=== PATIENT | female | born 1950 | race Caucasian/White ===

== ENCOUNTER 2024-08-30 16:15 | Emergency (ER) | payer MEDICARE, SELFPAY ==
[2024-08-30] VITALS (20 sets, daily range): BP systolic 96–130; BP diastolic 50–72; PULSE 79–87; TEMP 36.7; O2SAT 96–99; BMI 25.7
--- NOTE | 2024-08-30 16:09 | ECG_ITS ---
The [facility] Test Date: 2024-08-30 Pat Name: JAMES ALEX Department: Room: - Gender: Female [employer] Filler: : 1950 Requested By: Order Number: [id number] Reading MD: ARUAN CHARLTON Measurements Intervals [place] Rate: 82 P: 30 PA: 138 QRS: 53 QRSD: 94 T: 69 QT: 380 QTc: 419 Interpretive Statements 1100 Sinus rhythm 9110 normal ECG No previous ECG available for comparison Electronically Signed On 08-31-2024 6:52:31 EST by ARUNA CHARLTON
--- NOTE | 2024-08-30 16:09 | XR_ITS ---
The [address] [address] Patient Name: JAMES ALEX MRN: [id number] date: 1950 Sex: F Assigned Patient Location: ED.MAIN Current Patient Location: ED.MAIN Accession/Order Number: [id number] Exam Date: 08/30/2024 16:28 Report Date: 08/30/2024 17:09 At the request of: EVNTURA HONG Procedure: XR chest 1V Exam: Radiographs: XR chest 1V Reason for exam: abdominal pain Comparison: Chest x-ray dated 08/30/2015 XR/XR chest 1V IMPRESSION: Right PICC with tip in the upper SVC. Chest is otherwise unremarkable. Electronically authenticated by: KAREN GOMES Date: 08/30/2024 17:09
--- NOTE | 2024-08-30 16:14 | ED_ITS ---
HPI HPI - General Adult General Chief complaint: Abdominal Pain Stated complaint: FEEDING TUBE ISSUES Time Seen by Provider: 08/30/24 16:15 Source: patient and EMR Mode of arrival: ambulance Limitations: no limitations History of Present Illness HPI narrative: 74-year-old female presents to the ER for evaluation of increased drainage around recent J-tube placement 1 wwk ago with abdominal wound debridement with Dr. Mcclendon. [facility] Patient reports having a PEG tube for some time with a history of gastroparesis likely from her diabetes. Patient states she would chronically vomit. She requires 24-hour TPN for nutrition. 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 Patient waiting on a wound VAC. Patient under care at the [facility], receiving TPN. Patient does have some chronic baseline confusion and when asking questions knows her name, location and some of her recent events but defers a lot of the questions regarding her medical history to her at the bedside. She denies any fevers or chills. States she has some chronic abdominal pain and they have been giving her on all through her 14 Frt. J tube tube. states she is having more drainage and skin irritation as result at the site. Denies any nausea or vomiting but she is requesting IV pain medication on arrival. Onset (ago): week(s) Related Data Allergies Allergy/AdvReac Type Severity Reaction Status Date / Time bee venom protein (honey bee) Allergy Severe Anaphylaxis Verified 08/30/24 16:20 sulfamethoxazole (From Allergy Severe Hives Verified 08/30/24 16:20 Bactrim) tolterodine (From Detrol) Allergy Severe Anaphylaxis Verified 08/30/24 16:07 trimethoprim (From Bactrim) Allergy Severe Hives Verified 08/30/24 16:20 metoclopramide Allergy Unknown Unknown Verified 08/30/24 16:20 theophylline Allergy Unknown Unknown Verified 08/30/24 16:20 acetaminophen (From Percocet) AdvReac Mild Hallucinati Verified 08/30/24 16:07 ng codeine AdvReac Mild Hallucinati Verified 08/30/24 16:07 ng insulin detemir (From AdvReac Mild Rash Verified 08/30/24 16:07 Levemir U-100 Insulin) oxycodone (From Percocet) AdvReac Mild Hallucinati Verified 08/30/24 16:07 ng Opioid HPI Opioid Management Most Recent Opioid Data: No Data to Display Review of Systems ROS Constitutional Denies: fever or chills Eyes Denies: change in vision or blurry vision Ears, nose, mouth, and throat Denies: throat pain or neck pain Cardiovascular Denies: chest pain or palpitations Respiratory Denies: shortness of breath or cough Gastrointestinal Reports: abdominal pain; Denies: vomiting Genitourinary Denies: painful urination Musculoskeletal Denies: back pain or neck pain Integumentary/Breast Denies: rash Neurological Denies: headache Psychiatric Denies: anxiety Allergic/Immunologic Denies: hives [facility] Medical History (Updated 08/30/24 @ 18:46 by JEY Yeager) Myocardial infarct, old ?I25.2 - Old myocardial infarction (ICD-10) Hypertension ?I10 - Essential (primary) hypertension (ICD-10) Claustrophobia ?F40.240 - Claustrophobia (ICD-10) Hypokalemia ?E87.6 - Hypokalemia (ICD-10) Hypomagnesemia ?E83.42 - Hypomagnesemia (ICD-10) Hyperlipidemia ?E78.5 - Hyperlipidemia, unspecified (ICD-10) Malnourished ?E46 - Unspecified protein-calorie malnutrition (ICD-10) Type 2 diabetes mellitus ?E11.9 - Type 2 diabetes mellitus without complications (ICD-10) Compression fracture of T12 vertebra ?S22.080A - Wedge compression fracture of T11-T12 vertebra, initial encounter for closed fracture (ICD-10) Wedge compression fracture of T11 vertebra ?S22.080A - Wedge compression fracture of T11-T12 vertebra, initial encounter for closed fracture (ICD-10) Gastroparesis ?K31.84 - Gastroparesis (ICD-10) Surgical History (Updated 08/30/24 @ 18:42 by Mary Wilson RN) H/O heart artery stent ?Z95.5 - Presence of coronary angioplasty implant and graft (ICD-10) Social History Little interest or pleasure in doing things: not at all Feeling down, depressed, or hopeless: not at all Exam Narrative Exam Narrative: Nurses notes and vital signs reviewed and patient is not hypoxic. General: The patient appears well, lying supine with active tube feed. answers questions readily.. repots failing Feeding studies X3 in 2018. Skin: Warm, dry, no pallor noted. Slight erythema/dermatitis-like reaction around the J-tube site on the right lower abdomen copious amounts of serous drainage appearing yellow and transparent in color. No purulent drainage no streaking. Wound margins without hypergranulation to the left upper abdomen with significant area of debridement noted from recent surgery and ramona in the midline. Head: Normocephalic, atraumatic Neck: Supple, trachea mid-line, no tenderness, no lymphadenopathy Eye: Pupils are equal, round and reactive to light, EOMI Ears, Nose, Mouth, and Throat: TM are clear, normal light reflex, oral mucosa is moist, no posterior oropharynx erythema or hypertrophy, uvula is mid-line Cardiovascular: Regular Rate and Rhythm Respiratory: Patient is in no distress, no accessory muscle use, lungs are clear to auscultation, no wheezing, rales or rhonchi. Chest Wall: no tenderness Back: non-tender, no CVA tenderness Musculoskeletal: normal ROM, no tenderness, no swelling. Picc ling right arm without s/s of infection. GI: Bowel sounds present, tenderness noted in the right lower and left lower quadrant. No rebound or rigidity slight induration concerning for seroma, no drainge at midline ramona or suspscious drainge from large left upper abdomen debridement site. Neurological: A&O x person , place and time. Psychiatric: Cooperative Constitutional Vital Signs, click to edit/add: Last Vital Signs Temp 98.1 F 08/30/24 15:57 Pulse 79 08/30/24 18:30 Resp 12 08/30/24 18:30 BP 130/61 08/30/24 18:30 Pulse Ox 96 08/30/24 18:30 O2 Del Method Room Air 08/30/24 15:57 Course Vital Signs Vital signs: Vital Signs Temperature 98.1 F 08/30/24 15:57 Pulse Rate 86 08/30/24 15:57 Respiratory Rate 18 08/30/24 15:57 Blood Pressure 111/72 08/30/24 15:57 Pulse Oximetry 98 08/30/24 15:57 Oxygen Delivery Method Room Air 08/30/24 15:57 Temperature 98.1 F 08/30/24 15:57 Pulse Rate 79 08/30/24 18:30 Respiratory Rate 12 08/30/24 18:30 Blood Pressure 130/61 08/30/24 18:30 Pulse Oximetry 96 08/30/24 18:30 Oxygen Delivery Method Room Air 08/30/24 15:57 Medical Decision Making MDM Narrative Medical decision making narrative: Discussed recent history with surgery, concern of infection and movement of her J tube.. Recent surgery last Saturday just over 1 week. Notable serous drainage concerning for seroma to the right lower abdomen at J-tube site. Patient has active tube feeding at this time. She notes she has had chronic abdominal pain since the surgery. Should be given a dose of IV morphine. Patient's at the bedside with discussion of recent history. I was able to review medications after they were faxed from the [facility] at 1624. Patient receiving IV Zosyn 3.375 mg every 8 hours. Patient also on Plavix. Patient requesting additional IV morphine and 2 mg to be given. Reviewed CT report, J-tube appears well-positioned, inflammatory changes in the soft tissue of the wall of the abdomen consistent with likely recent surgery and large opening. Patient without fever or chills. Case discussed with Dr. Temple who is covering for Dr. Mcclendon at outside from outside facility, he is familiar with the patient. We discussed that the tube is in good position but drainage around the tube concerning for liponecrosis likely seroma. Patient is afebrile and WBC within normal limits. reports the patient has an appointment with nurse practitioner in their office tomorrow. Dr. Temple reported that Dr. Mcclendon would be available on Saturday if needed possibly be seen on Saturday. Continue on her IV antibiotics. Recommend more frequent dressing changes to the area of drainage as it appears more lipo necrotic than bile-stained and pt has low albumin. Advised to the patient and her spouse to return to the ER should any symptoms worsen or new symptoms develop such as fever or chills. She will be transported back to group home facility where she has been a resident less than 48 hours. Lab Data Lab results reviewed: Yes I reviewed the patient's lab results Labs: Lab Results 08/30/24 08/30/24 Range/Units 16:15 18:05 WBC 9.9 (4.0-11.0) 10^3/uL RBC 3.52 L (4.20-5.40) 10^6/uL Hgb 10.5 L (12.0-16.0) g/dL Hct 31.1 L (36.0-48.0) % MCV 88.4 (81.0-99.0) fL MCH 29.8 (26.7-34.0) pg MCHC 33.8 (29.9-35.2) g/dL RDW 13.9 (11.0-15.0) % Plt Count 300 (150-450) 10^3/uL MPV 8.8 L (9.5-13.5) fL Neut % (Auto) 79.9 H (43.0-75.0) % Lymph % (Auto) 10.9 L (20.5-60.0) % Park % (Auto) 6.2 (1.7-12.0) % Eos % (Auto) 1.1 (0.9-7.0) % Baso % (Auto) 0.2 (0.2-2.0) % Neut # (Auto) 7.9 H (1.4-6.5) 10^3/uL Lymph # (Auto) 1.1 L (1.2-3.8) 10^3/uL Park # (Auto) 0.6 (0.3-0.8) 10^3/uL Eos # (Auto) 0.1 (0.0-0.7) 10^3/uL Baso # (Auto) 0.0 (0.0-0.1) 10^3/uL Abs Immat Gran (auto) 0.17 H (0.00-0.03) 10^3/uL Imm/Tot Granulo (auto) 1.7 H (0.0-0.5) % Sodium 135 L (136-145) mmol/L Potassium 4.1 (3.5-5.1) mmol/L Chloride 99 (98-107) mmol/L Carbon Dioxide 25.2 (21.0-32.0) mmol/L Anion Gap 14.9 BUN 11.0 (7.0-18.0) mg/dL Creatinine 0.74 (0.55-1.02) mg/dL Est GFR ( Amer) >60 (>=60 mL/min/1.73m^2) Est GFR (Non-Af Amer) >60 (>=60 mL/min/1.73m^2) BUN/Creatinine Ratio 14.9 Glucose 249 H (74-106) mg/dL Lactate 2.4 H* (0.4-2.0) mmol/L Calcium 8.4 L (8.5-10.1) mg/dL Total Bilirubin 0.6 (0.2-1.0) mg/dL AST 24 (15-37) U/L ALT 28 (14-59) U/L Alkaline Phosphatase 146 H (46-116) U/L Troponin I High Sens 11.4 (4.0-51.3) pg/mL Total Protein 5.4 L (6.4-8.2) g/dL Albumin 1.8 L (3.4-5.0) g/dL Globulin 3.6 g/dL Albumin/Globulin Ratio 0.5 Lipase 62.0 (16.0-77.0) U/L Urine Color Yellow (YELLOW) Urine Clarity Clear (CLEAR) Urine pH 8.5 (5.0-9.0) Ur Specific [place] 1.010 (1.005-1.025) Urine Protein Trace (NEG/TRACE) mg/dL Urine Glucose (UA) Negative (NEGATIVE) mg/dL Urine Ketones Negative (NEGATIVE) mg/dL Urine Occult Blood Negative (NEGATIVE) Urine Nitrite Negative (NEGATIVE) Urine Bilirubin Negative (NEGATIVE) Urine Urobilinogen 0.2 (0.2-1.0) EU/dL Ur Leukocyte Esterase Negative (NEGATIVE) Imaging Data CT scan - abdomen: Radiologist's impression: ITS Impressions Chest X-Ray 08/30/24 16:09 IMPRESSION: Right PICC with tip in the upper SVC. Chest is otherwise unremarkable. Electronically authenticated by: KAREN GOMES Date: 08/30/2024 17:09 Abdomen/Pelvis CT 08/30/24 17:15 IMPRESSION: 1. The recently placed tube noted in the right flank extends into the small bowel, tip lies within the lumen appropriately positioned. 2. Extensive abdominal pelvic wall subcutaneous inflammatory process extending from the site of previous tube in the left flank. There is a large open wound in the left abdominal pelvic wall. 3. No acute process within the abdomen or pelvis. Electronically authenticated by: ANGIE QUINN Date: 08/30/2024 18:16 ECG Data Attestation: I personally reviewed and interpreted this ECG as follows: Interpretation: EKG interpretation: Emergency Department physician interpretation, normal sinus rhythm 82 bpm. , no ectopy, no ST segment elevation, normal axis. Discharge Plan Discharge Chief Complaint: Abdominal Pain Clinical Impression: Abdominal pain, Encounter for post surgical wound check Patient Disposition: Home, Self-Care Time of Disposition Decision: 18:44 Condition: Good Mode of Transportation: EMS Print Language: Singaporean Instructions: Abdominal Pain (ED) Additional Instructions: Keep appt with [facility]ENEFITS SPECIALIST at Dr. Edmond's office for tomorrow.. ( If appt not made then Call office of Dr. Temple for appt with Dr. Mcclendon on Saturday) Referrals: Carlos Temple MD [Physician] - As soon as possible Physician,Non-Staff, [Primary Care Provider] - 1 week
[2024-08-30 16:31] LABS: Basophils Percent Auto 0.2 % (0.2-2.0); Eosinophils Absolute Auto 0.1 10^3/uL (0.0-0.7); Eosinophils Percent Auto 1.1 % (0.9-7.0); Hematocrit 31.1 % (36.0-48.0); Hemoglobin 10.5 g/dL (12.0-16.0); Immature Granulocytes Abs Auto 0.17 10^3/uL (0.00-0.03); Immature Granulocytes Pct Auto 1.7 % (0.0-0.5); Lymphocytes Absolute Auto 1.1 10^3/uL (1.2-3.8); Lymphocytes Percent Auto 10.9 % (20.5-60.0); Mean Corpuscular HGB Conc 33.8 g/dL (29.9-35.2); Mean Corpuscular Hemoglobin 29.8 pg (26.7-34.0); Mean Corpuscular Volume 88.4 fL (81.0-99.0); Mean Platelet Volume 8.8 fL (9.5-13.5); Monocytes Absolute Auto 0.6 10^3/uL (0.3-0.8); Monocytes Percent Auto 6.2 % (1.7-12.0); Neutrophils Absolute Auto 7.9 10^3/uL (1.4-6.5); Neutrophils Percent Auto 79.9 % (43.0-75.0); Platelet Count 300 10^3/uL (150-450); Red Blood Count 3.52 10^6/uL (4.20-5.40); Red Cell Distribution Width 13.9 % (11.0-15.0); White Blood Count 9.9 10^3/uL (4.0-11.0)
[2024-08-30] MEDS: ONDANSETRON PF 4 MG/2 ML VIAL IV (16:44)
[2024-08-30 16:49] LABS: Alanine Aminotransferase 28 U/L (14-59); Albumin Globulin Ratio 0.5; Albumin Level 1.8 g/dL (3.4-5.0); Alkaline Phosphatase 146 U/L (46-116); Anion Gap 14.9; Aspartate Amino Transferase 24 U/L (15-37); BUN Creatinine Ratio 14.9; Bilirubin Total 0.6 mg/dL (0.2-1.0); Calcium 8.4 mg/dL (8.5-10.1); Carbon Dioxide 25.2 mmol/L (21.0-32.0); Chloride 99 mmol/L (98-107); Estimated GFR (African America >60 (>=60 mL/min/1.73m^2); Estimated GFR (Non-African Ame >60 (>=60 mL/min/1.73m^2); Globulin 3.6 g/dL; Glucose 249 mg/dL (74-106); Potassium 4.1 mmol/L (3.5-5.1); Sodium 135 mmol/L (136-145); Total Protein 5.4 g/dL (6.4-8.2)
[2024-08-30 16:52] LABS: Troponin I High Sensitivity 11.4 pg/mL (4.0-51.3)
[2024-08-30 16:53] LABS: Lactate/Lactic Acid 2.4 mmol/L (0.4-2.0)
--- NOTE | 2024-08-30 17:15 | CT_ITS ---
The [address] [address] Patient Name: JAMES ALEX MRN: [id number] date: 1950 Sex: F Assigned Patient Location: ER Current Patient Location: ER Accession/Order Number: [id number] Exam Date: 08/30/2024 17:28 Report Date: 08/30/2024 18:16 At the request of: VENTURA HONG Procedure: CT abdomen pelvis w con EXAM: CT abdomen pelvis w con HISTORY: Abd pain, confirm tube placement, wound at prior s COMPARISON: None. TECHNIQUE: CT abdomen pelvis with IV contrast 100 mL Omnipaque 300. Axial scans with reformatted coronal sagittal images. Individualized radiation dose reduction used for this exam. FINDINGS: Lower chest: Lung bases clear, no acute process lower chest. Small hiatal hernia. Calcified lymph nodes left lower chest. ABDOMEN: No liver lesion. Previous cholecystectomy. No duct dilatation. Adrenal glands, pancreas, spleen unremarkable except for granulomata. No free fluid or ascites in the abdomen. No pneumoperitoneum. No adenopathy. Normal enhancement aorta and branches. Normal venous enhancement. Normal renal enhancement without mass or hydronephrosis. Normal ureters. No bowel dilatation ileus or obstruction. There is a tube in the right abdominal wall/flank which extends into the small bowel. Tip lies within the lumen. No inflammation seen around the tube entry site in the abdominal wall. The previous tube has been removed and there is extensive inflammatory process in the subcutaneous tissues of the abdominal pelvic wall extending into left flank. There is inflammatory stranding gas and fluid. Gas collection extends from approximately L3 level inferiorly through the pelvic wall and left flank. There is a large open wound in the left anterolateral pelvic wall. Inflammatory process extends inferiorly within the pelvic wall. Inflammatory process gas and air noted in the subcutaneous tissues anterior pelvic wall ventral to the rectus muscles. No associated adjacent intra-abdominal gas or fluid.. PELVIS: No mass or adenopathy or free fluid. Normal fluid in the bladder. No uterine or adnexal pathology. MUSCULOSKELETAL: Extensive abdominal pelvic wall subcutaneous fluid and gas/inflammatory process extending from the site of the previous tube into the left flank. The venous lumbar spine surgery with hardware, no suspicious bone lesion. CT/CT abdomen pelvis w con IMPRESSION: 1. The recently placed tube noted in the right flank extends into the small bowel, tip lies within the lumen appropriately positioned. 2. Extensive abdominal pelvic wall subcutaneous inflammatory process extending from the site of previous tube in the left flank. There is a large open wound in the left abdominal pelvic wall. 3. No acute process within the abdomen or pelvis. Electronically authenticated by: ANGIE QUINN Date: 08/30/2024 18:16
[2024-08-30] MEDS: MORPHINE SULFATE 4 MG/ML VIAL IV (17:49)
[2024-08-30 18:15] LABS: Bilirubin Urine NEGATIVE (NEGATIVE); Blood Urine NEGATIVE (NEGATIVE); Clarity Urine CLEAR (CLEAR); Color Urine YELLOW (YELLOW); Glucose Urine UA NEGATIVE (NEGATIVE); Ketones Urine NEGATIVE (NEGATIVE); Leukocyte Esterase Urine NEGATIVE (NEGATIVE); Nitrite Urine NEGATIVE (NEGATIVE); Protein Urine TRACE mg/dL (NEG/TRACE); Urobilinogen Urine 0.2 EU/dL (0.2-1.0); pH Urine 8.5 (5.0-9.0)
[2024-08-30 18:19] LABS: Urine Microscopic Indicated NO
--- NOTE | 2024-08-30 21:24 | PC.NURSE ---
Pt will be medicated prior to EMS transfer back to [facility]
[2024-08-30] MEDS: MORPHINE SULFATE 2 MG/ML SYRINGE IV (21:48)
--- NOTE | 2024-08-30 22:16 | PC.NURSE ---
This nurse made three separate attempts to contact [facility] upon patient discharge to provide report to nurse but was unable to reach anyone.
== END 2024-08-30 22:10 | disposition home or self-care (01) ==
PROVIDERS: Personal Emergency Response Attendant; Emergency Provider Emergency Medicine
DX: Z43.4 Encounter for attention to other artificial openings of digestive tract (principal); R10.9 Unspecified abdominal pain; G89.29 Other chronic pain; Z98.890 Other specified postprocedural states; Z90.49 Acquired absence of other specified parts of digestive tract; E11.9 Type 2 diabetes mellitus without complications; Z79.4 Long term (current) use of insulin
CPT/HCPCS: 36415; 36569; 71045; 74177; 80053; 81003; 83605; 83690; 84484; 85025; 87040; 93005; 96374; 96375; 96376; 99285; J2270; J2405; Q9967

== ENCOUNTER 2024-09-02 14:15 | Emergency (ER) | payer MEDICARE, SELFPAY ==
[2024-09-02] VITALS (24 sets, daily range): BP systolic 109–164; BP diastolic 57–86; PULSE 83–92; TEMP 36.7; O2SAT 92–100; BMI 26.4
--- NOTE | 2024-09-02 14:22 | CT_ITS ---
[address] [address] Patient Name: JAMES ALEX MRN: [id number] date: 1950 Sex: F Assigned Patient Location: ER Current Patient Location: ER Accession/Order Number: [id number] Exam Date: 09/02/2024 15:49 Report Date: 09/02/2024 16:25 At the request of: DENNISE SANCHES Procedure: CT abdomen pelvis w con CT ABDOMEN/PELVIS WITH IV CONTRAST. INDICATION: bowel obstruction. COMPARISON: 08/30/2024. TECHNIQUE: Contiguous axial images were obtained from the lung bases to the pelvic floor following the intravenous administration of contrast. Coronal and sagittal reformations are provided. FINDINGS: LOWER LUNGS: Clear. LIVER/BILIARY TREE: No mass. No intrahepatic ductal dilatation. GALLBLADDER: Status post cholecystectomy.. CBD: Normal CBD. SPLEEN: Normal in size. PANCREAS: No acute findings. No peripancreatic fluid or inflammation. No pancreatic duct dilatation. No discrete mass. ADRENALS: Normal. KIDNEYS: No hydronephrosis. No radiopaque calculus. STOMACH AND BOWEL: Stomach is unremarkable. No dilated bowel loops. No bowel wall thickening. Jejunostomy tube noted. APPENDIX: Normal appendix. PERITONEAL CAVITY: No fluid. No fat stranding. ABDOMINAL WALL: Redemonstrated in the left anterior abdominal wall. No fluid collection. LYMPH NODES: No mesenteric or retroperitoneal lymphadenopathy by CT criteria. ABDOMINAL AORTA: No aneurysm. PELVIS: No acute abnormality. Intact L4-5 posterior fusion hardware. MUSCULOSKELETAL: No acute osseous abnormality. CT/CT abdomen pelvis w con IMPRESSION: 1. No acute abnormality in the abdomen or pelvis. No bowel obstruction. 2. Jejunostomy tube in place. 3. Redemonstrated wound in the left anterior abdominal wall. No fluid collection. Electronically authenticated by: DAVID CRAMER Date: 09/02/2024 16:25
--- NOTE | 2024-09-02 14:33 | ED_ITS ---
<Statement entered by Sharifa Cazares DO - 09/04/24 20:15> This documentation has been reviewed and approved. HPI HPI - General Adult General Chief complaint: Nausea/Vomiting/Diarrhea Stated complaint: GENERALIZED WEAKNESS Time Seen by Provider: 09/02/24 14:18 Source: patient Mode of arrival: walk-in History of Present Illness HPI narrative: 74 y/o female presents via EMS from [facility] with complaint of nausea, epigastric discomfort. States chronic problem for years, but worse over the past couple hours. Patient has a feeding tube to the right side of the abdomen. + diarrhea . On 14 August, patient had a left-sided feeding tube placed due to chronic nausea and vomiting. This tube had subsequently displaced and infiltrated. She required surgery, debridement. There was some concern about necrotizing fasciitis. The feeding tube was subsequently moved over to the right side. Surgery took place at [facility] Quality:?As above Severity:?Moderate Timing:?As above, constant Context: Normal setting and activity? Modifying factors:?Pain worse with palpation Associated symptoms: As above Related Data Home Medications ?Medication ?Instructions ?Recorded ?Confirmed Lactobacillus acidophilus 1 1,000 mmu cells PO DAILY 09/02/24 09/02/24 billion cell capsule albuterol sulfate 90 mcg/actuation 2 puff inhalation Q6H PRN 09/02/24 09/02/24 aerosol inhaler shortness of breath or wheezing atorvastatin 80 mg tablet 80 mg PO BEDTIME 09/02/24 09/02/24 clopidogrel 75 mg tablet 75 mg PO DAILY 09/02/24 09/02/24 ezetimibe 10 mg tablet 10 mg PO DAILY 09/02/24 09/02/24 famotidine 20 mg tablet 20 mg PO Q8H 09/02/24 09/02/24 hydrocodone 5 mg-acetaminophen 325 1 tab PO Q4H 09/02/24 09/02/24 mg tablet insulin lispro 100 unit/mL 1 sliding scale dose subcut 09/02/24 09/02/24 subcutaneous pen (Humalog KwikPen .before meals (U-100) Insulin) lisinopril 5 mg tablet 5 mg PO DAILY 09/02/24 09/02/24 midodrine 10 mg tablet 10 mg PO TID 09/02/24 09/02/24 ondansetron 4 mg disintegrating 4 mg translingual Q8H PRN nausea 09/02/24 09/02/24 tablet and vomiting pantoprazole 40 mg tablet,delayed 40 mg PO Q12H 09/02/24 09/02/24 release piperacillin-tazobactam 3.375 gram 3.375 g IV Q8H 09/02/24 09/02/24 intravenous solution promethazine 25 mg tablet mg 09/02/24 sertraline 100 mg tablet 100 mg PO Q24H 09/02/24 09/02/24 Allergies Allergy/AdvReac Type Severity Reaction Status Date / Time bee venom protein (honey bee) Allergy Severe Anaphylaxis Verified 09/02/24 14:20 sulfamethoxazole (From Allergy Severe Hives Verified 09/02/24 14:20 Bactrim) tolterodine (From Detrol) Allergy Severe Anaphylaxis Verified 09/02/24 14:20 trimethoprim (From Bactrim) Allergy Severe Hives Verified 09/02/24 14:20 metoclopramide Allergy Unknown Unknown Verified 08/30/24 16:20 theophylline Allergy Unknown Unknown Verified 08/30/24 16:20 acetaminophen (From Percocet) AdvReac Mild Hallucinati Verified 08/30/24 16:07 ng codeine AdvReac Mild Hallucinati Verified 08/30/24 16:07 ng insulin detemir (From AdvReac Mild Rash Verified 08/30/24 16:07 Levemir U-100 Insulin) oxycodone (From Percocet) AdvReac Mild Hallucinati Verified 08/30/24 16:07 ng Opioid HPI Opioid Management Most Recent Opioid Data: No Data to Display Review of Systems ROS Narrative CONST: Denies any fever, chills RESP: Denies any shortness of breath CV: Denies any chest pain GI: +abd pain, nausea, vomiting, diarrhea : Denies any flank pain, dysuria MS: Denies any back pain, myalgias SKIN: Denies any color change, rash NEURO: Denies numbness, weakness PSYCHIATRIC: Denies confusion, agitation [facility] Medical History (Updated 09/02/24 @ 17:55 by JEY Grider) Myocardial infarct, old ?I25.2 - Old myocardial infarction (ICD-10) Hypertension ?I10 - Essential (primary) hypertension (ICD-10) Claustrophobia ?F40.240 - Claustrophobia (ICD-10) Hypokalemia ?E87.6 - Hypokalemia (ICD-10) Hypomagnesemia ?E83.42 - Hypomagnesemia (ICD-10) Hyperlipidemia ?E78.5 - Hyperlipidemia, unspecified (ICD-10) Malnourished ?E46 - Unspecified protein-calorie malnutrition (ICD-10) Type 2 diabetes mellitus ?E11.9 - Type 2 diabetes mellitus without complications (ICD-10) Compression fracture of T12 vertebra ?S22.080A - Wedge compression fracture of T11-T12 vertebra, initial encounter for closed fracture (ICD-10) Wedge compression fracture of T11 vertebra ?S22.080A - Wedge compression fracture of T11-T12 vertebra, initial encounter for closed fracture (ICD-10) Gastroparesis ?K31.84 - Gastroparesis (ICD-10) Surgical History (Updated 08/30/24 @ 18:42 by Mary Wilson RN) H/O heart artery stent ?Z95.5 - Presence of coronary angioplasty implant and graft (ICD-10) Social History Little interest or pleasure in doing things: not at all Feeling down, depressed, or hopeless: not at all Exam Narrative Exam Narrative: Vital signs reviewed Nurses notes noted CONST: Nontoxic, uncomfortable appearing, well nourished, in no gross distress.? No diaphoresis.?? HENT: normocephalic, atraumatic, moist mucous membrane, no abnormalities of the nose noted, hearing normal EYES: normal appearing conjunctiva, no apparent discharge bilat NECK: normal appearance CV: normal rate, regular rhythm, no murmur RESP: normal effort, speaking in complete sentences. Lung sounds clear and equal bilat.? No wheezes, rales, rhonchi GI: normal bowel sounds, soft, no distension, + packed wounds noted to the left upper abdomen and wound with feeding tube, dressing surrounding it to the right lower abdomen. Wound appears clean. Right sided feeding tub site appears a little red. No purulent drainage, warmth. There is tenderness to the upper portion of the abdomen. During evaluation, patient had episode of emesis. : no CVA tenderness MS: no edema, tenderness SKIN: no pallor NEURO: A&Ox 3, no focal findings PSYCH: normal mood, affect Constitutional Vital Signs, click to edit/add: Last Vital Signs Temp 98.0 F 09/02/24 14:20 Pulse 85 09/02/24 16:16 Resp 23 H 09/02/24 16:16 BP 146/85 H 09/02/24 17:30 Pulse Ox 95 09/02/24 17:30 O2 Del Method Room Air 09/02/24 14:20 Course Reevaluation(s) Reevaluation #1: On re-evaluation, she appears to be feeling much better. She is smiling. States she is feeling better. Discussed with patient and results, plan, and disposition. They are agreeable. Time: 17:55 Vital Signs Vital signs: Vital Signs Temperature 98.0 F 09/02/24 14:20 Pulse Rate 87 09/02/24 14:20 Respiratory Rate 18 09/02/24 14:20 Blood Pressure 129/68 09/02/24 14:20 Pulse Oximetry 99 09/02/24 14:20 Oxygen Delivery Method Room Air 09/02/24 14:20 Temperature 98.0 F 09/02/24 14:20 Pulse Rate 85 09/02/24 16:16 Respiratory Rate 23 H 09/02/24 16:16 Blood Pressure 146/85 H 09/02/24 17:30 Pulse Oximetry 95 09/02/24 17:30 Oxygen Delivery Method Room Air 09/02/24 14:20 Medical Decision Making MDM Narrative Medical decision making narrative: This is a 72-year-old female presents with complaint of epigastric pain, nausea, vomiting, diarrhea. Patient with history of feeding tube that displaced and infiltrated requiring extensive debridement, surgery a couple weeks ago at [facility]. The feeding tube was relocated to the right side of her abdomen. She is having worsening pain, nausea, vomiting 2 hours prior to arrival. She does appear to have not received her scheduled pain meds [employer] and considered this to be a factor in presenting symptoms. On arrival, afebrile, vital signs are stable. On exam, nontoxic, somewhat uncomfortable. Patient in no gross distress. Heart regular rate and rhythm. Lung sounds clear and equal bilaterally. Left upper abdomen has packing dressings, right side of the abdomen and has feeding tube with surrounding dressing. There is epigastric tenderness. IV access established, labs drawn. Patient does have white count of 16,000, otherwise lab testing appears stable. Urinalysis unremarkable. CT abd/pelvis imaging per radiologist reveals post surg changes, no acute abnorm alities. Patient markedly improved during ED course. On re-eval, patient smiling, states she is feeling better. History and Record Review Discussion with independent historian: Favor nonspecific n/v, upper abd pain UTI, wound infection, pneumonia, perforation, j tube disruption less likely based on labs, imaging Disposition ? The patient was discharged. Plan: Patient will be discharged to assisted living. Condition at time of disposition: stable ? Advised to follow up with primary provider. Advised to return for any worsening and/or development of new, concerning signs or symptoms PLEASE NOTE: Portions of the medical record may have been produced using electronic leather tooler and may contain errors with respect to translation of words which may not have been identified prior to finalization of the chart. Medical Records Medical records reviewed: Yes I reviewed the patient's medical records Lab Data Lab results reviewed: Yes I reviewed the patient's lab results Labs: Lab Results 09/02/24 09/02/24 09/02/24 Range/Units 14:30 14:55 16:39 WBC 16.0 H (4.0-11.0) 10^3/uL RBC 3.20 L (4.20-5.40) 10^6/uL Hgb 9.6 L (12.0-16.0) g/dL Hct 28.4 L (36.0-48.0) % MCV 88.8 (81.0-99.0) fL MCH 30.0 (26.7-34.0) pg MCHC 33.8 (29.9-35.2) g/dL RDW 14.3 (11.0-15.0) % Plt Count 527 H (150-450) 10^3/uL MPV 8.7 L (9.5-13.5) fL Neut % (Auto) 84.8 H (43.0-75.0) % Lymph % (Auto) 6.8 L (20.5-60.0) % [place] % (Auto) 7.1 (1.7-12.0) % Eos % (Auto) 0.5 L (0.9-7.0) % Baso % (Auto) 0.2 (0.2-2.0) % Neut # (Auto) 13.6 H (1.4-6.5) 10^3/uL Lymph # (Auto) 1.1 L (1.2-3.8) 10^3/uL [place] # (Auto) 1.1 H (0.3-0.8) 10^3/uL Eos # (Auto) 0.1 (0.0-0.7) 10^3/uL Baso # (Auto) 0.0 (0.0-0.1) 10^3/uL Abs Immat Gran (auto) 0.10 H (0.00-0.03) 10^3/uL Imm/Tot Granulo (auto) 0.6 H (0.0-0.5) % Sodium 138 (136-145) mmol/L Potassium 4.1 (3.5-5.1) mmol/L Chloride 103 (98-107) mmol/L Carbon Dioxide 26.3 (21.0-32.0) mmol/L Anion Gap 12.8 BUN 19.0 H (7.0-18.0) mg/dL Creatinine 0.69 (0.55-1.02) mg/dL Est GFR ( Amer) >60 (>=60 mL/min/1.73m^2) Est GFR (Non-Af Amer) >60 (>=60 mL/min/1.73m^2) BUN/Creatinine Ratio 27.5 Glucose 227 H (74-106) mg/dL Calcium 8.9 (8.5-10.1) mg/dL Magnesium 2.0 (1.8-2.4) mg/dL Total Bilirubin 0.5 (0.2-1.0) mg/dL AST 50 H (15-37) U/L ALT 58 (14-59) U/L Alkaline Phosphatase 162 H (46-116) U/L Troponin I High Sens (4.0-51.3) pg/mL Total Protein 6.3 L (6.4-8.2) g/dL Albumin 2.1 L (3.4-5.0) g/dL Globulin 4.2 g/dL Albumin/Globulin Ratio 0.5 Lipase 65.0 (16.0-77.0) U/L Urine Color Yellow (YELLOW) Urine Clarity Sl cloudy (CLEAR) Urine pH 8.5 (5.0-9.0) Ur Specific [place] 1.015 (1.005-1.025) Urine Protein 30 A (NEG/TRACE) mg/dL Urine Glucose (UA) Negative (NEGATIVE) mg/dL Urine Ketones Negative (NEGATIVE) mg/dL Urine Occult Blood Negative (NEGATIVE) Urine Nitrite Negative (NEGATIVE) Urine Bilirubin Negative (NEGATIVE) Urine Urobilinogen 0.2 (0.2-1.0) EU/dL Ur Leukocyte Esterase Negative (NEGATIVE) Urine RBC 0-2 (0-2) #/HPF Urine WBC None seen (NONE SEEN) #/HPF Ur Squamous Epith Cells Few A (NONE/RARE) #/LPF Urine Crystals None seen (None Seen) #/HPF Urine Bacteria Moderate A (NONE SEEN) #/HPF Urine Casts None seen (NONE SEEN) #/LPF Urine Mucus None seen (NONE SEEN) Ur Culture Indicated? Yes 09/02/24 Range/Units 16:46 WBC (4.0-11.0) 10^3/uL RBC (4.20-5.40) 10^6/uL Hgb (12.0-16.0) g/dL Hct (36.0-48.0) % MCV (81.0-99.0) fL MCH (26.7-34.0) pg MCHC (29.9-35.2) g/dL RDW (11.0-15.0) % Plt Count (150-450) 10^3/uL MPV (9.5-13.5) fL Neut % (Auto) (43.0-75.0) % Lymph % (Auto) (20.5-60.0) % [place] % (Auto) (1.7-12.0) % Eos % (Auto) (0.9-7.0) % Baso % (Auto) (0.2-2.0) % Neut # (Auto) (1.4-6.5) 10^3/uL Lymph # (Auto) (1.2-3.8) 10^3/uL [place] # (Auto) (0.3-0.8) 10^3/uL Eos # (Auto) (0.0-0.7) 10^3/uL Baso # (Auto) (0.0-0.1) 10^3/uL Abs Immat Gran (auto) (0.00-0.03) 10^3/uL Imm/Tot Granulo (auto) (0.0-0.5) % Sodium (136-145) mmol/L Potassium (3.5-5.1) mmol/L Chloride (98-107) mmol/L Carbon Dioxide (21.0-32.0) mmol/L Anion Gap BUN (7.0-18.0) mg/dL Creatinine (0.55-1.02) mg/dL Est GFR ( Amer) (>=60 mL/min/1.73m^2) Est GFR (Non-Af Amer) (>=60 mL/min/1.73m^2) BUN/Creatinine Ratio Glucose (74-106) mg/dL Calcium (8.5-10.1) mg/dL Magnesium (1.8-2.4) mg/dL Total Bilirubin (0.2-1.0) mg/dL AST (15-37) U/L ALT (14-59) U/L Alkaline Phosphatase (46-116) U/L Troponin I High Sens 9.7 (4.0-51.3) pg/mL Total Protein (6.4-8.2) g/dL Albumin (3.4-5.0) g/dL Globulin g/dL Albumin/Globulin Ratio Lipase (16.0-77.0) U/L Urine Color (YELLOW) Urine Clarity (CLEAR) Urine pH (5.0-9.0) Ur Specific [place] (1.005-1.025) Urine Protein (NEG/TRACE) mg/dL Urine Glucose (UA) (NEGATIVE) mg/dL Urine Ketones (NEGATIVE) mg/dL Urine Occult Blood (NEGATIVE) Urine Nitrite (NEGATIVE) Urine Bilirubin (NEGATIVE) Urine Urobilinogen (0.2-1.0) EU/dL Ur Leukocyte Esterase (NEGATIVE) Urine RBC (0-2) #/HPF Urine WBC (NONE SEEN) #/HPF Ur Squamous Epith Cells (NONE/RARE) #/LPF Urine Crystals (None Seen) #/HPF Urine Bacteria (NONE SEEN) #/HPF Urine Casts (NONE SEEN) #/LPF Urine Mucus (NONE SEEN) Ur Culture Indicated? Imaging Data CT scan - abdomen: Radiologist's impression: ITS Impressions Abdomen/Pelvis CT 09/02/24 14:22 IMPRESSION: 1. No acute abnormality in the abdomen or pelvis. No bowel obstruction. 2. Jejunostomy tube in place. 3. Redemonstrated wound in the left anterior abdominal wall. No fluid collection. Electronically authenticated by: DAVID CRAMER Date: 09/02/2024 16:25 Chest X-Ray 09/02/24 16:52 Impression: No radiographic evidence of acute cardiopulmonary process. Electronically authenticated by: MARLA KAY Date: 09/02/2024 17:45 Discharge Plan Discharge Chief Complaint: Nausea/Vomiting/Diarrhea Clinical Impression: Nausea & vomiting, Abdominal pain Patient Disposition: Home, Self-Care Time of Disposition Decision: 17:54 Mode of Transportation: EMS Prescriptions / Home Meds: No Action albuterol sulfate 90 mcg/actuation HFA aerosol inhaler 2 puff INHALATION Q6H PRN (Reason: shortness of breath or wheezing) atorvastatin 80 mg tablet 80 mg PO BEDTIME ezetimibe 10 mg tablet 10 mg PO DAILY famotidine 20 mg tablet 20 mg PO Q8H hydrocodone-acetaminophen 5-325 mg tablet 1 tab PO Q4H insulin lispro [Humalog KwikPen Insulin] 100 unit/mL insulin pen 1 sliding scale dose SUBCUT .before meals Lactobacillus acidophilus 1 billion cell capsule 1,000 mmu cells PO DAILY lisinopril 5 mg tablet 5 mg PO DAILY midodrine 10 mg tablet 10 mg PO TID Rx Instructions: do not give last dose of day after 6PM or within 4 hrs of bedtime ondansetron 4 mg tablet,disintegrating 4 mg translingual Q8H PRN (Reason: nausea and vomiting) pantoprazole 40 mg tablet,delayed release (DR/EC) 40 mg PO Q12H clopidogrel 75 mg tablet 75 mg PO DAILY promethazine 25 mg tablet sertraline 100 mg tablet 100 mg PO Q24H piperacillin-tazobactam 3.375 gram recon soln 3.375 g IV Q8H Print Language: Czech Instructions: Acute Nausea and Vomiting (DC), Acute Abdominal Pain (ED) Referrals: Physician,Non-Staff, MD [Primary Care Provider] - 1 week
[2024-09-02] MEDS: 0.9 % SODIUM CHLORIDE 1,000 ML 999 ML IV (14:36)
[2024-09-02] MEDS: FAMOTIDINE/PF 20 MG/2 ML VIAL IV (14:37)
[2024-09-02] MEDS: ONDANSETRON PF 4 MG/2 ML VIAL IV (14:37)
[2024-09-02 14:38] LABS: Basophils Percent Auto 0.2 % (0.2-2.0); Eosinophils Absolute Auto 0.1 10^3/uL (0.0-0.7); Eosinophils Percent Auto 0.5 % (0.9-7.0); Hematocrit 28.4 % (36.0-48.0); Hemoglobin 9.6 g/dL (12.0-16.0); Immature Granulocytes Pct Auto 0.6 % (0.0-0.5); Lymphocytes Absolute Auto 1.1 10^3/uL (1.2-3.8); Lymphocytes Percent Auto 6.8 % (20.5-60.0); Mean Corpuscular HGB Conc 33.8 g/dL (29.9-35.2); Mean Corpuscular Volume 88.8 fL (81.0-99.0); Mean Platelet Volume 8.7 fL (9.5-13.5); Monocytes Absolute Auto 1.1 10^3/uL (0.3-0.8); Monocytes Percent Auto 7.1 % (1.7-12.0); Neutrophils Absolute Auto 13.6 10^3/uL (1.4-6.5); Neutrophils Percent Auto 84.8 % (43.0-75.0); Platelet Count 527 10^3/uL (150-450); Red Cell Distribution Width 14.3 % (11.0-15.0)
[2024-09-02] MEDS: MORPHINE SULFATE 4 MG/ML VIAL IV (15:12)
[2024-09-02 15:20] LABS: Alanine Aminotransferase 58 U/L (14-59); Albumin Globulin Ratio 0.5; Albumin Level 2.1 g/dL (3.4-5.0); Alkaline Phosphatase 162 U/L (46-116); Anion Gap 12.8; Aspartate Amino Transferase 50 U/L (15-37); BUN Creatinine Ratio 27.5; Bilirubin Total 0.5 mg/dL (0.2-1.0); Calcium 8.9 mg/dL (8.5-10.1); Carbon Dioxide 26.3 mmol/L (21.0-32.0); Chloride 103 mmol/L (98-107); Estimated GFR (African America >60 (>=60 mL/min/1.73m^2); Estimated GFR (Non-African Ame >60 (>=60 mL/min/1.73m^2); Globulin 4.2 g/dL; Glucose 227 mg/dL (74-106); Potassium 4.1 mmol/L (3.5-5.1); Sodium 138 mmol/L (136-145); Total Protein 6.3 g/dL (6.4-8.2)
--- NOTE | 2024-09-02 16:52 | XR_ITS ---
The [address] [address] Patient Name: JAMES ALEX MRN: [id number] date: 1950 Sex: F Assigned Patient Location: ER Current Patient Location: ED.MAIN Accession/Order Number: [id number] Exam Date: 09/02/2024 16:48 Report Date: 09/02/2024 17:45 At the request of: DENNISE SANCHES Procedure: XR chest 1V EXAM: XR chest 1V HISTORY: epigastric pain COMPARISON: 08/30/2024. TECHNIQUE: Chest X-ray AP, 1 view FINDINGS: Support devices: Right arm PICC terminates near the cavoatrial junction. Lungs/pleura: No consolidation, effusion, or pneumothorax. Heart and mediastinum: Normal contours. Bones: No acute abnormality identified. XR/XR chest 1V Impression: No radiographic evidence of acute cardiopulmonary process. Electronically authenticated by: MARLA KAY Date: 09/02/2024 17:45
[2024-09-02 16:56] LABS: Bilirubin Urine NEGATIVE (NEGATIVE); Blood Urine NEGATIVE (NEGATIVE); Clarity Urine SL CLOUDY (CLEAR); Color Urine YELLOW (YELLOW); Glucose Urine UA NEGATIVE (NEGATIVE); Ketones Urine NEGATIVE (NEGATIVE); Leukocyte Esterase Urine NEGATIVE (NEGATIVE); Nitrite Urine NEGATIVE (NEGATIVE); Protein Urine 30 mg/dL (NEG/TRACE); Specific Gravity Urine 1.015 (1.005-1.025); Urobilinogen Urine 0.2 EU/dL (0.2-1.0); pH Urine 8.5 (5.0-9.0)
[2024-09-02 17:06] LABS: Bacteria Urine MODERATE #/HPF (NONE SEEN); Mucus Urine NONE SEEN (NONE SEEN); RBC Urine 0-2 #/HPF (0-2); Squamous Epithelial Cell Urine FEW #/LPF (NONE/RARE); WBC Urine NONE SEEN #/HPF (NONE SEEN)
[2024-09-02 17:07] LABS: Cast Seen? NONE SEEN #/LPF (NONE SEEN); Crystals Seen? None Seen #/HPF (None Seen); Urine Culture Indicated YES
[2024-09-02 17:12] LABS: Troponin I High Sensitivity 9.7 pg/mL (4.0-51.3)
[2024-09-02] MEDS: HYDROCODONE/ACET 5-325 MG TABLET 1 TAB PO (18:17)
== END 2024-09-02 19:44 | disposition home or self-care (01) ==
PROVIDERS: Emergency Medicine; Physician Assistant; Emergency Provider Emergency Medicine
DX: R11.2 Nausea with vomiting, unspecified (principal); R10.9 Unspecified abdominal pain; Z93.4 Other artificial openings of gastrointestinal tract status
CPT/HCPCS: 36415; 71045; 74177; 80053; 81001; 83690; 83735; 84484; 85025; 87086; 96361; 96374; 96375; 99285; J2270; J2405; Q9967

== ENCOUNTER 2024-09-05 04:07 | Emergency (ER) | payer MEDICARE, SELFPAY ==
[2024-09-05] VITALS (56 sets, daily range): BP systolic 62–156; BP diastolic 40–89; PULSE 94–130; TEMP 36.4–37; O2SAT 85–100
--- NOTE | 2024-09-05 04:21 | ECG_ITS ---
The [facility] Test Date: 2024-09-05 Pat Name: JAMES ALEX Department: Room: - Gender: Female Echo Vascular Tech: : 1950 Requested By: [id number] Order Number: [id number] Reading MD: ARNUA CHARLTON Measurements Intervals [place] Rate: 102 P: 36 IN: 138 QRS: 45 QRSD: 92 T: 64 QT: 366 QTc: 425 Interpretive Statements 1120 Sinus tachycardia 9140 abnormal rhythm ECG Compared to ECG 08/30/2024 16:03:01 Sinus rhythm no longer present Electronically Signed On 09-05-2024 8:57:59 EST by ARUNA CHARLTON
--- NOTE | 2024-09-05 04:29 | PC.NURSE ---
patient arrives from [facility] for c/o bleeding around J tube on RLQ. patient arrives via ems and noted to be weak and pale. patient reports feeling very drowsy and having abdominal pain. patient has large area of excoriation to lower abdomen and multiple wash clothes taped to patient's abdomen over top of 2 ABD pads around the j tube. Patient noted to have bright red blood leaking from j tube insertion site. patient states the J tube was placed 2 satdays ago at [facility]. Patient currently being treated for necrotizing fascitis to [facility] of abdomen with zosyn at nursing facility. patient reports that she has snotty looking yellow coming out from around the J tube for several days this week and this morning she noticed gelatinous red blood coming from it. patient reports she is normally ambulatory but today felt too weak to walk.
[2024-09-05 04:32] LABS: Basophils Absolute Auto 0.1 10^3/uL (0.0-0.1); Basophils Percent Auto 0.4 % (0.2-2.0); Eosinophils Absolute Auto 0.1 10^3/uL (0.0-0.7); Eosinophils Percent Auto 1.1 % (0.9-7.0); Hematocrit 26.3 % (36.0-48.0); Hemoglobin 8.6 g/dL (12.0-16.0); Immature Granulocytes Abs Auto 0.06 10^3/uL (0.00-0.03); Immature Granulocytes Pct Auto 0.5 % (0.0-0.5); Lymphocytes Absolute Auto 1.9 10^3/uL (1.2-3.8); Lymphocytes Percent Auto 16.3 % (20.5-60.0); Mean Corpuscular HGB Conc 32.7 g/dL (29.9-35.2); Mean Corpuscular Hemoglobin 29.7 pg (26.7-34.0); Mean Corpuscular Volume 90.7 fL (81.0-99.0); Mean Platelet Volume 8.5 fL (9.5-13.5); Monocytes Absolute Auto 1.1 10^3/uL (0.3-0.8); Monocytes Percent Auto 9.4 % (1.7-12.0); Neutrophils Absolute Auto 8.2 10^3/uL (1.4-6.5); Neutrophils Percent Auto 72.3 % (43.0-75.0); Platelet Count 582 10^3/uL (150-450); Red Cell Distribution Width 14.4 % (11.0-15.0); White Blood Count 11.3 10^3/uL (4.0-11.0)
[2024-09-05] MEDS: 0.9 % SODIUM CHLORIDE 1,000 ML 100 ML IV (04:34)
[2024-09-05] MEDS: NOREPINEPHRINE BITARTRATE/D5W 4 MG/250 ML PREMIX 37.5 MG IV (04:34)
--- NOTE | 2024-09-05 04:36 | XR_ITS ---
The [address] [address] Patient Name: JAMES ALEX MRN: [id number] date: 1950 Sex: F Assigned Patient Location: ED.MAIN Current Patient Location: ER Accession/Order Number: [id number] Exam Date: 09/05/2024 15:26 Report Date: 09/05/2024 05:41 At the request of: ENMA BEE Procedure: XR chest 1V SINGLE VIEW CHEST: 09/05/2024 3:26 PM EST CLINICAL HISTORY:sepsis COMPARISONS: Portable chest 09/02/2024 TECHNIQUE: Single frontal view of the chest, utilizing portable technique. Portable radiography should be considered a technically compromised study. Strongly consider dedicated PA and lateral chest radiographs, as clinically indicated. FINDINGS: LINES AND TUBES: Cardiac monitoring leads and wires overlie the patient. Right arm PICC line with tip overlying proximal SVC. CARDIAC SILHOUETTE: Within normal limits. MEDIASTINAL AND HILAR CONTOUR: Within normal limits. PULMONARY PARENCHYMA AND PLEURA: No consolidation, edema, effusion, or pneumothorax. OSSEOUS STRUCTURES:Nothing significant. OTHER COMMENTS:None. XR/XR chest 1V IMPRESSION: Stable chest, with no acute radiographic findings. This report was generated with voice recognition software. Effort has been made to ensure accuracy of this report, however, occasional wording errors may persist. Please contact our office with any questions. Electronically authenticated by: IVETTE SANDERS Date: 09/05/2024 05:41
--- NOTE | 2024-09-05 04:43 | CT_ITS ---
The [address] [address] Patient Name: JAMES ALEX MRN: [id number] date: 1950 Sex: F Assigned Patient Location: ER Current Patient Location: ER Accession/Order Number: [id number] Exam Date: 09/05/2024 05:10 Report Date: 09/05/2024 05:40 At the request of: ENMA CAZARES Procedure: CT abdomen pelvis w con CT OF THE ABDOMEN AND PELVIS WITH CONTRAST: 09/05/2024 5:10 AM EST CLINICAL HISTORY: Sepsis. Pain. Jejunostomy tube. Bleeding around tube. COMPARISONS: CT abdomen and pelvis 09/02/2024. TECHNIQUE: Thin section axial CT images were obtained from the lung bases to the pubis symphysis. This CT exam was performed using one or more of the following dose reduction techniques: Automated exposure control, adjustment of the mA and/or kV according to patient size, or use of iterative reconstruction technique. Thin section coronal and sagittal images were reconstructed from the axial data set. All images were reviewed and interpreted. CONTRAST: Omnipaque 300, 100 mL given IV. FINDINGS: LUNG BASES: No consolidation or pleural fluid. Stable large calcified left lung base granuloma measuring up to 1.7 cm. Calcified left posterior hilar lymph node. Coronary artery calcifications. No cardiac chamber enlargement. LIVER: Hepatic steatosis. Otherwise negative. Normal portal vein enhancement. GALLBLADDER: Cholecystectomy. BILIARY TREE: No ductal dilatation. PANCREAS: Normal. SPLEEN: Normal. ADRENALS: Normal. KIDNEYS: Normal, without urolithiasis or hydronephrosis. URINARY BLADDER: Grossly unremarkable. PELVIC STRUCTURES: Unremarkable. BOWEL: There is a jejunostomy tube entering from right mid abdominal approach with balloon inflated right upper quadrant loop with distal tube extending and crossing to the left of midline. There are inflammatory changes in the subcutaneous fat around the entrance of the tube. No discrete fluid collection. Small hyperdense of vessels with possible active bleeding seen focally in the right rectus muscle along the inner margin of the tube. There is minimal rectus sheath swelling and hematoma extending to centimeter by 1.5 cm in this region. There could be some residual active bleeding vessel in the anterior abdominal wall. Correlate with exam. Remaining small bowel loops are unremarkable. No enteritis or hyperdense fluid seen within distal small bowel. Large bowel demonstrates some mild colonic stool retention. Diverticulosis. No colitis or large bowel obstruction. No small bowel obstruction. APPENDIX: No active disease with normal appendix. LYMPH NODES: No pathologically enlarged lymph nodes identified. PERITONEUM: No intraperitoneal free air. No free intraperitoneal fluid. MESENTERY: Unremarkable. RETROPERITONEUM: The retroperitoneum is unremarkable. AORTA: Normal in caliber. BODY WALL: There is a large gaping wound again noted along the left midabdomen. Unchanged from 09/02/2024. Correlate with exam. Right jejunostomy tube as detailed above. There is some additional areas of air within the anterior midline abdomen superficial to the ventral muscle lower abdomen and upper pelvis. No defined fluid collection or drainable abscess at this time. Similar to previous to marginally improved areas of gas. OSSEOUS STRUCTURES: No lytic or blastic bone lesion. L4-5 fusion with posterior pedicle screws and rods and intervertebral disc graft. Fixed grade 1 anterolisthesis of L4 on L5. Schmorl's node decompression or old fracture upper endplate of T12. No acute fracture. CT/CT abdomen pelvis w con IMPRESSION: 1. Isolated right jejunostomy tube entrance in the right rectus sheath there is what appears to be subtle possible bleeding vessel within the rectus muscle. Tiny hematoma. Surrounding edematous changes subcutaneous fat. Correlate with exam. 2. Persistent large gaping left anterior abdominal wall wound. No developing abscess. 3. Additional incidental chronic stable findings as discussed above. Critical results were NOTIFIED by TELEPHONE BY Dr. Francisco Javier Hernández, DO to Physician: Enma Cazares At 09/05/2024 5:29 AM EST. Electronically authenticated by: FRANCISCO JAVIER HERNÁNDEZ Date: 09/05/2024 05:40
[2024-09-05 04:44] LABS: Alanine Aminotransferase 43 U/L (14-59); Albumin Globulin Ratio 0.5; Alkaline Phosphatase 140 U/L (46-116); Anion Gap 18.1; Aspartate Amino Transferase 33 U/L (15-37); BUN Creatinine Ratio 20.8; Bilirubin Total 0.7 mg/dL (0.2-1.0); Calcium 8.5 mg/dL (8.5-10.1); Carbon Dioxide 24.8 mmol/L (21.0-32.0); Chloride 102 mmol/L (98-107); Estimated GFR (African America >60 (>=60 mL/min/1.73m^2); Estimated GFR (Non-African Ame 54 (>=60 mL/min/1.73m^2); Globulin 3.7 g/dL; Glucose 165 mg/dL (74-106); Potassium 3.9 mmol/L (3.5-5.1); Sodium 141 mmol/L (136-145); Total Protein 5.7 g/dL (6.4-8.2)
[2024-09-05 04:49] LABS: Lactate/Lactic Acid 1.8 mmol/L (0.4-2.0)
--- NOTE | 2024-09-05 05:54 | ED_ITS ---
HPI HPI - General Adult General Chief complaint: Dizziness Stated complaint: CIRCUS AGENT ISSUE Time Seen by Provider: 09/05/24 04:11 Source: patient, EMR and medical record Source information: EMS, [facility] Mode of arrival: ambulance Limitations: no limitations History of Present Illness HPI narrative: The patient is a 74-year-old female who presents to the emergency department from convalescent care where the patient is recovering from extensive abdominal surgery. Apparently beginning August 14, the patient had a J-tube placed in her left upper Abdomen: 4 gastroparesis affiliated with intractable nausea and vomiting. Then, the patient had some dislodgment of this tube and was leaking tube feeds into her abdominal cavity. It was felt that the patient had necrotizing fasciitis so she went to the operating room where she had removal of the tube affiliated with debridement and a washout. The feeding-tube was subsequently moved to the right side of her abdomen. This was performed at [facility]. General surgeons Dr. Temple and Dr. Mcclendon has been participating in her care. The patient was seen at the [facility] August 30 for abdominal pain associated with increased drainage at the J-tube site. She returned September 02 for evaluation of abdominal pain associated with nausea/vomiting/diarrhea. At that time the patient had an unremarkable CT scan and was transferred [facility] to [facility]. Patient presents today complaining of abdominal pain. Her abdominal pain has been somewhat chronic per old medical records. Patient stating that it hurts more on the right side today. She does have some nausea but has not vomited. Patient is currently on chronic TPN for nutrition through her PICC line on the right upper extremity. The patient has not been excepting her tube feeds. Apparently there is some confusion as to whether or not the patient can start her tube feeds. Her understood the directions to be that the patient is to not start her tube feeds until she got back to the convalescent center. The patient however feels that the tube feeds should not be reinitiated and she has not been excepting tube feeds at the facility. While the patient has not expressed any type of suicidal thoughts, the patient does seem depressed. I asked the patient's about her demeanor. He manolo cates that he feels like she is close to giving up because her illness has been so acute and she is now in a convalescent center and seemingly not improving as fast as she wants. He remarked that he felt that she should have a psychiatric evaluation at some point. She has received an care at the convalescent facility in addition to TPN. This evening what brought the patient to [facility] was that the patient had bleeding around the J-tube site and was pale. The patient has abdominal pain but cannot describe the quality, characteristics, or severity of the pain. Historically, the states that she has been declining in reference to her gastroparesis and chronic nausea and vomiting since 2016 in August. He states that she also had several stents placed a couple months prior. Related Data Home Medications ?Medication ?Instructions ?Recorded ?Confirmed Lactobacillus acidophilus 1 1,000 mmu cells PO DAILY 09/02/24 09/05/24 billion cell capsule albuterol sulfate 90 mcg/actuation 2 puff inhalation Q6H PRN 09/02/24 09/05/24 aerosol inhaler shortness of breath or wheezing atorvastatin 80 mg tablet 80 mg PO BEDTIME 09/02/24 09/05/24 clopidogrel 75 mg tablet 75 mg PO DAILY 09/02/24 09/05/24 ezetimibe 10 mg tablet 10 mg PO DAILY 09/02/24 09/05/24 famotidine 20 mg tablet 20 mg PO Q8H 09/02/24 09/05/24 hydrocodone 5 mg-acetaminophen 325 1 tab PO Q4H 09/02/24 09/05/24 mg tablet insulin lispro 100 unit/mL 1 sliding scale dose subcut 09/02/24 09/05/24 subcutaneous pen (Humalog KwikPen .before meals (U-100) Insulin) lisinopril 5 mg tablet 5 mg PO DAILY 09/02/24 09/05/24 midodrine 10 mg tablet 10 mg PO TID 09/02/24 09/05/24 ondansetron 4 mg disintegrating 4 mg translingual Q8H PRN nausea 09/02/24 09/05/24 tablet and vomiting pantoprazole 40 mg tablet,delayed 40 mg PO Q12H 09/02/24 09/05/24 release piperacillin-tazobactam 3.375 gram 3.375 g IV Q8H 09/02/24 09/05/24 intravenous solution promethazine 25 mg tablet 25 mg PO TID 09/02/24 09/05/24 sertraline 100 mg tablet 100 mg PO Q24H 09/02/24 09/05/24 calcium carbonate-vitamin D3 1 tab PO .QD 09/05/24 09/05/24 cyanocobalamin (vitamin B-12) 1,000 mcg PO DAILY 09/05/24 09/05/24 1,000 mcg capsule heparin lock flush (porcine) 10 100 unit IV Q12H 09/05/24 09/05/24 unit/mL intravenous syringe hydrocortisone 1 % lotion (Beta-HC) 1 applic topical BID PRN skin 09/05/24 09/05/24 irritation insulin glargine 100 unit/mL 50 unit subcut DAILY 09/05/24 09/05/24 subcutaneous solution (Lantus U-100 Insulin) omega 3 350 mg-dha 235 mg-epa 90 1 cap PO QDAY 09/05/24 09/05/24 mg-fish oil 597 mg capsule,delay rel ([place]-3) prochlorperazine maleate 10 mg 10 mg PO BID PRN nausea and 09/05/24 09/05/24 tablet (Compazine) vomiting scopolamine base 1 mg over 3 days 1 patch transdermal Q72H 09/05/24 09/05/24 transdermal patch sodium hypochlorite 0.125 % 1 applic topical BID 09/05/24 09/05/24 solution (Dakin's Solution) Allergies Allergy/AdvReac Type Severity Reaction Status Date / Time bee venom protein (honey bee) Allergy Severe Anaphylaxis Verified 09/02/24 14:20 sulfamethoxazole (From Allergy Severe Hives Verified 09/02/24 14:20 Bactrim) tolterodine (From Detrol) Allergy Severe Anaphylaxis Verified 09/02/24 14:20 trimethoprim (From Bactrim) Allergy Severe Hives Verified 09/02/24 14:20 metoclopramide Allergy Unknown Unknown Verified 08/30/24 16:20 theophylline Allergy Unknown Unknown Verified 08/30/24 16:20 acetaminophen (From Percocet) AdvReac Mild Hallucinati Verified 08/30/24 16:07 ng codeine AdvReac Mild Hallucinati Verified 08/30/24 16:07 ng insulin detemir (From AdvReac Mild Rash Verified 08/30/24 16:07 Levemir U-100 Insulin) oxycodone (From Percocet) AdvReac Mild Hallucinati Verified 08/30/24 16:07 ng Opioid HPI Opioid Management Most Recent Opioid Data: No Data to Display Review of Systems ROS Narrative 10 Systems were reviewed, and unless not ed in the HPI, all other systems are reviewed, unremarkable, or noncontributory. [facility] Medical History (Updated 09/05/24 @ 05:54 by Sharifa Cazares DO) Myocardial infarct, old ?I25.2 - Old myocardial infarction (ICD-10) Hypertension ?I10 - Essential (primary) hypertension (ICD-10) Claustrophobia ?F40.240 - Claustrophobia (ICD-10) Hypokalemia ?E87.6 - Hypokalemia (ICD-10) Hypomagnesemia ?E83.42 - Hypomagnesemia (ICD-10) Hyperlipidemia ?E78.5 - Hyperlipidemia, unspecified (ICD-10) Malnourished ?E46 - Unspecified protein-calorie malnutrition (ICD-10) Type 2 diabetes mellitus ?E11.9 - Type 2 diabetes mellitus without complications (ICD-10) Compression fracture of T12 vertebra ?S22.080A - Wedge compression fracture of T11-T12 vertebra, initial encounter for closed fracture (ICD-10) Wedge compression fracture of T11 vertebra ?S22.080A - Wedge compression fracture of T11-T12 vertebra, initial encounter for closed fracture (ICD-10) Gastroparesis ?K31.84 - Gastroparesis (ICD-10) Surgical History (Updated 08/30/24 @ 18:42 by Mary Wilson RN) H/O heart artery stent ?Z95.5 - Presence of coronary angioplasty implant and graft (ICD-10) Social History Little interest or pleasure in doing things: not at all Feeling down, depressed, or hopeless: not at all Exam Narrative Exam Narrative: Prior to examining the patient, I have washed with hospital approved and provided Antiseptic Hand Paper Production Engineer and have also applied gloves.? Prior to touching the patient, I asked for consent to examine the patient.? Vitals: Vital signs were reviewed. She is markedly hypotensive. Peripheral pulses are not able to be palpated. General: Alert and oriented, well nourished, moderate distress, pale, diminished interaction. Eye: PERRL, EOMI, pale conjunctiva. HENT: Normocephalic, normal hearing, dry oral mucosa, no scleral icterus, no sinus tenderness. Patient's gingival tissues are extremely pale. Neck: Supple, non-tender, no carotid bruits, no JVD, no lymphadenopathy. Lungs: Clear to auscultation and percussion, non-labored respiration. Heart: Tachycardic rate, regular rhythm, no murmur, gallop or edema. Abdomen: Soft, diffusely tender without guarding or rebound. There is a 10 cm surgical incision that is packed wet-to-dry in the left upper abdominal wall. The patient has a J-tube on the right side of her abdominal wall. There is no active bleeding or extravasation around the J-tube at this time. Non-distended, normal bowel sounds, no masses. Musculoskeletal: Normal range of motion and strength, no tenderness or swelling. Skin: Skin is warm, dry and pink, no rashes or lesions. The skin on her anterior abdominal wall particularly on the side with the J-tube has marked excoriation around the entire tube and abdomen site. This is very localized and there is no evidence of any skin breakdown or excoriation anywhere else on the patient. Neurologic: Awake, alert, and oriented X3, CN II-XII intact. Psychiatric: Cooperative, flat affect and depressed mood Following the conclusion of the examination, I have washed my hands thoroughly after removing examination gloves. Constitutional Vital Signs, click to edit/add: Last Vital Signs Temp 97.6 F 09/05/24 04:17 Pulse 106 H 09/05/24 05:40 Resp 18 09/05/24 05:40 BP 115/57 09/05/24 05:40 Pulse Ox 100 09/05/24 05:40 O2 Del Method Room Air 09/05/24 04:17 Course Course Hospital Course: When the patient arrived she met SIRS criteria. We were concerned about eminent decompensation. She was extremely pale and severe anemia was suspected. Therefore precarious amount of fluid was provided to the patient at 0.9% normal saline at 100 mL/h. This was to not cause an abrupt increase in pressure in breakdown any attempts at clot organization. We also did not want to significantly reduce clotting factors if indeed the patient was bleeding to the extent to cause her present presentation. Therefore, after we initiated the normal saline we began to provide the patient Levophed. We started the patient a 10 mcg/min dose and then we have subsequently reduced it to 5 mcg/min and her pressure seems to be responding well. Blood cultures and lactic acid were taken. Blood cultures are pending. Lactic acid is 1.8. Patient is already on intravenous antibiotic therapy with Zosyn. Patient was here less than 48 hours ago for evaluation of nausea, vomiting, diarrhea. Patient may have some type of intra-abdominal obstruction or infection although she just had a unremarkable CT scan less than 48 hours ago. She also had a negative chest x-ray. With the improvement of her blood pressure with the Levophed and fluids the patient has markedly improved her pressure. She has got more color to her skin and seems more alert. Chart review did reveal that the patient has dropped a couple grams of hemoglobin since August 30. When he consider the drop in hemoglobin and the fact that historically the skilled nursing was telling us that she has some bleeding around the tube site lends me to believe that this is SIRS criteria secondary to a noninfectious source but rather from the blood loss anemia. The patient is a very positional in terms of her blood pressure. At 06:25 the patient was sat up per her request. The patient however had a drop in her blood pressure again so the patient was reclined back again and her Levophed was increased. I think her hypotension is multifactorial. The patient is no longer receiving J-tube feeds. She is receiving apparently TPN but I do not know if that is enough fluid to maintain appropriate pressure. In addition, the patient does have evidence of hypoalbuminemia which may also affect the patient. Her blood loss is clearly been a direct affiliation. The patient is going to necessitate a higher level of care. She at the very least needs general surgery capabilities. But she will also at this time requiring ICU for hemodynamic shock since she continues to be on pressor support. Given the blood restrictions I am going outside of typical parameters to transfuse this patient because she does have a history of significant coronary artery disease but also she is actively bleeding per her CT scan and physical exam from the nursing facility. In addition, the patient is tachycardic and on pressor support with Levophed. Reevaluation(s) Reevaluation #1: Patient's arrived. I update him and introduced myself. Time: 04:35 Reevaluation #2: I help assist the nurse to CT scan. After we bring her back and get the patient a few ice chips and a small sip of water. Time: 05:20 Reevaluation #3: Updated patient and her . I obtained blood consent for 1 unit of packed red blood cells after thorough discussion about risks versus benefits. Time: 06:31 Consultations Consultation #1: Discussed with board-certified radiologist who indicated to me that there is is a region adjacent to her J-tube where there is hyperdense vessels. He states that he could see a focal area of bleeding in the rectus area although he does not see any large hematoma. He also remarks that there is a large gaping wound in her left anterior abdominal wall. Time: 05:36 Consultation #2: Had an opportunity to speak with the transfer center at [facility]. In my opinion the patient is going to need potentially general surgery, vascular surgery, or interventional radiology. I did opportunity to speak with Dr. Frias of vascular surgery. He indicated to me that general surgery would be more appropriate but they would be happy to consult if needed. Time: 05:52 Consultation #3: Had an opportunity to speak to Dr. Hill at [facility]. He stated on the basis that the patient is in hemodynamic shock, on pressors, he would be willing to take the patient. He stated his likely disposition will be to give the patient 1 unit of blood and transfer the patient out. Time: 06:41 Vital Signs Vital signs: Vital Signs Blood Pressure 62/40 L 09/05/24 04:07 Temperature 97.6 F 09/05/24 04:17 Pulse Rate 106 H 09/05/24 05:40 Respiratory Rate 18 09/05/24 05:40 Blood Pressure 115/57 09/05/24 05:40 Pulse Oximetry 100 09/05/24 05:40 Oxygen Delivery Method Room Air 09/05/24 04:17 Medical Decision Making MDM Narrative Medical decision making narrative: Patient is a 74-year-old female presenting to the emergency department for abdominal pain and bleeding from her J-tube site. Patient presents hypotensive and necessitated pressor support. Initially the patient met SIRS criteria but inevitably her SIRS was determined to be a result of blood loss as opposed to an infectious etiology. Patient's lactic acid is normal. Patient's white blood cell count is improved and the patient has been on Zosyn as an outpatient. Furthermore, the patient's CAT scan does not reveal any evidence of an infectious etiology. For the safety of the patient she is going to receive 1 unit of packed red blood cells and Levophed. The patient is can to be transferred to a higher level of care where she can be seen by general surgeon and if emergent intervention is needed they will have those OR capabilities. In addition, the patient would have access to IR and vascular surgery if that is felt to be needed. Differential Diagnosis Differential Diagnosis: Sepsis, necrotizing fasciitis, blood loss anemia, Strong-Bradley syndrome, Medical Records Medical records reviewed: Yes I reviewed the patient's medical records Medical records narrative: Medical records were imperative to try to piece together a timeline on this patient for her surgical interventions and past medical history. Lab Data Lab results reviewed: Yes I reviewed the patient's lab results Lab results narrative: August 30 the patient had a white blood cell count of 9.9 thousand with a hemoglobin hematocrit of 10.5 and 31.1 thousand. The patient on September 02 had a white blood cell count of 16,000 and a hemoglobin hematocrit of 9.6 and 28.4 respectively. Labs: Lab Results 09/05/24 Range/Units 04:12 WBC 11.3 H (4.0-11.0) 10^3/uL RBC 2.90 L (4.20-5.40) 10^6/uL Hgb 8.6 L (12.0-16.0) g/dL Hct 26.3 L (36.0-48.0) % MCV 90.7 (81.0-99.0) fL MCH 29.7 (26.7-34.0) pg MCHC 32.7 (29.9-35.2) g/dL RDW 14.4 (11.0-15.0) % Plt Count 582 H (150-450) 10^3/uL MPV 8.5 L (9.5-13.5) fL Neut % (Auto) 72.3 (43.0-75.0) % Lymph % (Auto) 16.3 L (20.5-60.0) % Pine % (Auto) 9.4 (1.7-12.0) % Eos % (Auto) 1.1 (0.9-7.0) % Baso % (Auto) 0.4 (0.2-2.0) % Neut # (Auto) 8.2 H (1.4-6.5) 10^3/uL Lymph # (Auto) 1.9 (1.2-3.8) 10^3/uL Pine # (Auto) 1.1 H (0.3-0.8) 10^3/uL Eos # (Auto) 0.1 (0.0-0.7) 10^3/uL Baso # (Auto) 0.1 (0.0-0.1) 10^3/uL Abs Immat Gran (auto) 0.06 H (0.00-0.03) 10^3/uL Imm/Tot Granulo (auto) 0.5 (0.0-0.5) % Sodium 141 (136-145) mmol/L Potassium 3.9 (3.5-5.1) mmol/L Chloride 102 (98-107) mmol/L Carbon Dioxide 24.8 (21.0-32.0) mmol/L Anion Gap 18.1 BUN 21.0 H (7.0-18.0) mg/dL Creatinine 1.01 (0.55-1.02) mg/dL Est GFR ( Amer) >60 (>=60 mL/min/1.73m^2) Est GFR (Non-Af Amer) 54 L (>=60 mL/min/1.73m^2) BUN/Creatinine Ratio 20.8 Glucose 165 H (74-106) mg/dL Lactate 1.8 (0.4-2.0) mmol/L Calcium 8.5 (8.5-10.1) mg/dL Magnesium 2.0 (1.8-2.4) mg/dL Total Bilirubin 0.7 (0.2-1.0) mg/dL AST 33 (15-37) U/L ALT 43 (14-59) U/L Alkaline Phosphatase 140 H (46-116) U/L Total Protein 5.7 L (6.4-8.2) g/dL Albumin 2.0 L (3.4-5.0) g/dL Globulin 3.7 g/dL Albumin/Globulin Ratio 0.5 Blood Type O Positive Antibody Screen Negative Imaging Data Chest x-ray: Attestation: I have reviewed the pertinent imaging results. Radiologist's impression: ITS Impressions Chest X-Ray 09/05/24 04:36 IMPRESSION: Stable chest, with no acute radiographic findings. This report was generated with voice recognition software. Effort has been made to ensure accuracy of this report, however, occasional wording errors may persist. Please contact our office with any questions. Electronically authenticated by: FRANCISCO JAVIER HERNÁNDEZ Date: 09/05/2024 05:41 Abdomen/Pelvis CT 09/05/24 04:43 IMPRESSION: 1. Isolated right jejunostomy tube entrance in the right rectus sheath there is what appears to be subtle possible bleeding vessel within the rectus muscle. Tiny hematoma. Surrounding edematous changes subcutaneous fat. Correlate with exam. 2. Persistent large gaping left anterior abdominal wall wound. No developing abscess. 3. Additional incidental chronic stable findings as discussed above. Critical results were NOTIFIED by TELEPHONE BY Dr. Francisco Javier Hernández, DO to Physician: Sharifa Cazares At 09/05/2024 5:29 AM EST. Electronically authenticated by: FRANCISCO JAVIER HERNÁNDEZ Date: 09/05/2024 05:40 ECG Data Attestation: I personally reviewed and interpreted this ECG as follows: Interpretation: Patient has a sinus tachycardia with a ventricular 102 bpm. The HI interval and QRS duration within normal limits. QTc is 425. Patient has no evidence of ST segment elevation or depression suggestive of infarction or ischemia. Summary: Nonspecific EKG. Critical Care Time Critical Care Time Critical Care Time: Yes Total Critical Care Time: 50 Attestation: Critical care time of 50 minutes was used for the treatment of prevention of clinically significant and life-threatening bleed, hypotension, intra-abdominal emergency or sepsis. Required emergent evaluation with a broad spectrum of assessment. And numerous patient reevaluations and adjustment of medications to keep the patient stable. But also required speaking to numerous consultants and documenting the patient's medical record while they were in the emergency department to help facilitate continuity of care. Discharge Plan Discharge Chief Complaint: Dizziness Clinical Impression: Acute blood loss anemia, Symptomatic anemia, Feeding tube dysfunction, SIRS due to non-infectious process without acute organ dysfunction, Excoriation of abdomen Abdominal pain Qualifiers: Abdominal location: epigastric Qualified Code(s): R10.13 - Epigastric pain Nausea & vomiting Qualifiers: Vomiting type: unspecified Qualified Code(s): R11.2 - Nausea with vomiting, unspecified Patient Disposition: [facility] Time of Disposition Decision: 05:50 Discharge Location: [facility] Discharge location: Accepted by Dr. Hill Condition: Fair Mode of Transportation: EMS Procedures ED Procedure Instructions Procedures Procedures: No procedures were performed on this patient
[2024-09-05] MEDS: ONDANSETRON PF 4 MG/2 ML VIAL IV (06:00)
[2024-09-05] MEDS: MORPHINE SULFATE 2 MG/ML SYRINGE IV (06:00)
[2024-09-05 07:11] LABS: Glucometer 207 mg/dL (74-106)
[2024-09-05] MEDS: 0.9 % SODIUM CHLORIDE 250 ML 10 ML IV (07:33)
--- NOTE | 2024-09-05 13:51 | PC.NURSE ---
Leaves with blood transfusing.
[2024-09-06 03:12] LABS: A. calcoaceticus-baumannii Cpx NOT DETECTED (NOT DETECTE); Bacteroides fragilis NOT DETECTED (NOT DETECTE); Candida albicans NOT DETECTED (NOT DETECTE); Candida auris NOT DETECTED (NOT DETECTE); Candida glabrata NOT DETECTED (NOT DETECTE); Candida krusei NOT DETECTED (NOT DETECTE); Candida parapsilosis NOT DETECTED (NOT DETECTE); Candida tropicalis NOT DETECTED (NOT DETECTE); Cryptococcus neoformans/gattii NOT DETECTED (NOT DETECTE); Enterobacter cloacae complex NOT DETECTED (NOT DETECTE); Enterobacterales NOT DETECTED (NOT DETECTE); Enterococcus faecalis NOT DETECTED (NOT DETECTE); Enterococcus faecium NOT DETECTED (NOT DETECTE); Haemophilus influenzae NOT DETECTED (NOT DETECTE); Klebsiella aerogenes NOT DETECTED (NOT DETECTE); Klebsiella pneumoniae group NOT DETECTED (NOT DETECTE); Listeria monocytogenes NOT DETECTED (NOT DETECTE); Neisseria meningitidis NOT DETECTED (NOT DETECTE); Proteus spp. NOT DETECTED (NOT DETECTE); Pseudomonas aeruginosa NOT DETECTED (NOT DETECTE); Salmonella spp. NOT DETECTED (NOT DETECTE); Serratia marcescens NOT DETECTED (NOT DETECTE); Staphylococcus lugdunensis NOT DETECTED (NOT DETECTE); Staphylococcus spp. NOT DETECTED (NOT DETECTE); Stenotrophomonas maltophilia NOT DETECTED (NOT DETECTE); Streptococcus agalactiae NOT DETECTED (NOT DETECTE); Streptococcus pneumoniae NOT DETECTED (NOT DETECTE); Streptococcus pyogenes NOT DETECTED (NOT DETECTE); Streptococcus spp. NOT DETECTED (NOT DETECTE)
[2024-09-06 04:43] LABS: Staphylococcus epidermidis DETECTED (NOT DETECTE); mecA/C DETECTED (NOT DETECTE)
[2024-09-06 04:47] LABS: Source BLOOD
== END 2024-09-05 08:58 | disposition short-term general hospital (02) ==
PROVIDERS: Emergency Provider Emergency Medicine
DX: D62 Acute posthemorrhagic anemia (principal); K94.19 Other complications of enterostomy; R65.10 Systemic inflammatory response syndrome (SIRS) of non-infectious origin without acute organ dysfunction; R10.13 Epigastric pain; Z95.5 Presence of coronary angioplasty implant and graft; I95.9 Hypotension, unspecified; E88.09 Other disorders of plasma-protein metabolism, not elsewhere classified; R11.2 Nausea with vomiting, unspecified; E11.9 Type 2 diabetes mellitus without complications; Z79.4 Long term (current) use of insulin
CPT/HCPCS: 36415; 36430; 71045; 74177; 80053; 81001; 82948; 83605; 83735; 85025; 86850; 86900; 86901; 86923; 87040; 87150; 93005; 96365; 96366; 96375; 99285; J2270; J2405; P9016; Q9967